=== PATIENT | male | born 1945 | race Caucasian/White ===

== ENCOUNTER → 2024-05-23 12:16 | Outpatient (REF) | payer MEDICARE, SELFPAY | LOC: PAVMRI 12:16 | PROVIDERS: ATTENDING PHYSICIAN Otolaryngology | DX: H93.12 Tinnitus, left ear (principal); H90.A22 Sensorineural hearing loss, unilateral, left ear, with restricted hearing on the contralateral side | CPT/HCPCS: 70553; A9575 ==